=== PATIENT | male | born 1935 | race Caucasian/White ===

== ENCOUNTER 2016-04-18 07:29 | Outpatient (CLI) | payer MEDICARE ==
[2016-04-18 08:28] LABS: Prothrombin Time 24.1 SEC (12.0-14.7)
== END 2016-04-18 07:30 | disposition home or self-care (01) ==
LOC: NAV LABSP 07:29
PROVIDERS: ATTEND Family Medicine
DX: Z51.81 Encounter for therapeutic drug level monitoring (principal); Z79.899 Other long term (current) drug therapy
CPT/HCPCS: 36415; 85610

== ENCOUNTER 2016-04-22 08:52 | Outpatient (CLI) | payer MEDICARE ==
[2016-04-22 10:12] LABS: Anion Gap 14 mmol/L (10-20); BUN (Urea Nitrogen) 18 mg/dL (8.4-25.7); Calc. Creatinine Clearance 0 mL/min (70-130); Calcium 8.1 mg/dL (7.8-10.44); Carbon Dioxide 27 mmol/L (23-31); Chloride 97 mmol/L (98-107); Estimated GFR-MDRD 71
== END 2016-04-22 08:53 | disposition home or self-care (01) ==
LOC: NAV LABSP 08:52
PROVIDERS: ATTEND Family Medicine
DX: I50.9 Heart failure, unspecified (principal)
CPT/HCPCS: 36415; 80048

== ENCOUNTER 2016-05-06 07:16 | Outpatient (CLI) | payer MEDICARE ==
[2016-05-06 08:31] LABS: Anion Gap 16 mmol/L (10-20); BUN (Urea Nitrogen) 24 mg/dL (8.4-25.7); Calc. Creatinine Clearance 0 mL/min (70-130); Calcium 7.7 mg/dL (7.8-10.44); Carbon Dioxide 24 mmol/L (23-31); Chloride 98 mmol/L (98-107); Estimated GFR-MDRD 58
[2016-05-06 08:57] LABS: Prothrombin Time 27.8 SEC (12.0-14.7)
== END 2016-05-06 07:17 | disposition home or self-care (01) ==
LOC: NAV LABSP 07:16
PROVIDERS: ATTEND Family Medicine
DX: I50.9 Heart failure, unspecified (principal); I25.2 Old myocardial infarction
CPT/HCPCS: 36415; 80048; 85610

== ENCOUNTER 2016-05-07 07:02 | Outpatient (CLI) | payer MEDICARE ==
[2016-05-07 08:42] LABS: #Basophils 0.1 thou/uL (0.0-0.2); #Eosinphils 0.1 thou/uL (0.0-0.7); #Lymphocytes 0.6 thou/uL (1.20-3.40); #Monocytes 0.9 thou/uL (0.11-0.59); #Neutrophils 18.1 thou/uL (1.40-6.50); %Basophils 0.5 % (0.0-1.0); %Eosinophils 0.6 % (0.0-10.0); %Lymphocytes 2.9 % (21.0-51.0); %Monocytes 4.5 % (0.0-10.0); Hematocrit 28.7 % (42.0-52.0); Red Blood Cell (RBC) Count 3.26 mill/uL (4.70-6.10); White Blood Cell (WBC) Count 19.7 thou/uL (4.8-10.8)
[2016-05-07 08:57] LABS: Prothrombin Time 31.6 SEC (12.0-14.7)
== END 2016-05-07 07:03 | disposition home or self-care (01) ==
LOC: NAV LABSP 07:02
PROVIDERS: ATTEND Family Medicine
DX: I50.9 Heart failure, unspecified (principal)
CPT/HCPCS: 36415; 85025; 85610

== ENCOUNTER 2016-05-08 07:14 | Outpatient (CLI) | payer MEDICARE ==
[2016-05-08 09:53] LABS: Bilirubin Negative (Negative); Blood, Urine Moderate (Negative); Glucose, Urine (Dipstick) Negative (Negative); Ketone, Urine Negative (Negative); Nitrite Negative (Negative); Protein, Urine (Dipstick) 30 mg/dL (Neg-Trace); Urobilinogen 0.2 mg/dL (0.2-1.0)
[2016-05-08 10:00] LABS: Prothrombin Time 34.2 SEC (12.0-14.7)
[2016-05-08 10:09] LABS: Bacteria/HPF 3+ HPF (None Seen); Squamous Epithelial 0-3 HPF (0-3)
== END 2016-05-08 07:15 | disposition home or self-care (01) ==
LOC: NAV LABSP 07:14
PROVIDERS: ATTEND Family Medicine
DX: R82.99 Other abnormal findings in urine (principal)
CPT/HCPCS: 36415; 81001; 85610; 87086

== ENCOUNTER 2016-05-13 09:23 | Outpatient (CLI) | payer MEDICARE | END 2016-05-13 09:24 | disposition home or self-care (01) | LOC: NAV LABSP 09:23 | PROVIDERS: ATTEND Family Medicine | DX: I48.2 Chronic atrial fibrillation (principal) | CPT/HCPCS: 36415; 85610 ==